=== PATIENT | male | born 1950 | race Caucasian/White ===

== ENCOUNTER → 2021-04-01 | Day surgery (SDC) | payer OTHER, MEDICARE ==
[~2021-04-01] VITALS: Ht 180.3 cm; Wt 81.7 kg
[~2021-04-01] MED LIST: CENTRUM SILVER1 EAC5 PO; FISH OIL 1,001000 M3 PO
--- NOTE | ~2021-04-01 | O ---
[facility] [place] [address] OPERATIVE REPORT Name: ELIU BARNES Room #: [facility]#: [id number] Admission: 04/01/21 Attend Phys: Cosme Muir MD Discharge: Date of : 48 Report #: [id number] THIS REPORT FOR: cc: FAM - Family physician unknown FAM - Family physician unknown Cosme Muir MD ~ cc: ____ ____, Bob Means MD DATE OF SERVICE: 04/01/2021 SURGEON: Cosme Muir MD DOCK HAND: None. PREOPERATIVE DIAGNOSIS: Bilateral lower lid ectropion. POSTOPERATIVE DIAGNOSIS: Bilateral lower lid ectropion. OPERATION PERFORMED: Bilateral lower lid ectropion repair. ANESTHESIA: Local with IV sedation. COMPLICATIONS: None. INDICATIONS FOR PROCEDURE: This patient has bilateral acquired lower lid ectropion with chronic tearing, keratopathy and discharge. The current procedures are undertaken in order to improve the patient's visual function, lacrimal outflow, and level of comfort. Informed consent was obtained to include but not limit to the risk of loss of vision, bleeding, infection, scarring, failure to improve the problem and need for further surgery. DESCRIPTION OF OPERATION: The patient was taken to the operating room where 2% Xylocaine with epinephrine mixed with equal parts of 0.75% Marcaine with Wydase was administered transcutaneously and transconjunctivally to each lower lid and lateral canthal area. The patient was then prepped and draped in the usual sterile fashion. A Leigh clamp was then used to clamp the left lateral canthus following which a sharp canthotomy and cantholysis were performed. The tarsal strip was prepared laterally, removing the lash bearing portion of the redundant lid margin and the redundant tarsal plate. Hemostasis was achieved with a monopolar cautery, as it was throughout the case. The tarsal strip was then secured to the internal portion of the lateral orbital tubercle with two interrupted 5-0 Prolene sutures. The lateral canthal angle was sharply reformed as the subcutaneous structures and the skin were closed with multiple interrupted 6-0 plain gut sutures. Attention was then turned to the right side where the same procedure was [facility] [address] [place] [address] OPERATIVE REPORT Name: ELIU BARNES Room #: [facility].#: [id number] Admission: 04/01/21 Attend Phys: Cosme Muir MD Discharge: Date of : 48 Report #: [id number] performed. The wounds were cleaned and dressed with ophthalmic antibiotic ointment. The patient was then transported to the recovery area, having tolerated the procedure well with no anesthetic or operative complications being noted. By: 0926 1111 Cosme Muir MD /nt
[2021-04-01 08:44] VITALS: BP 119/73
--- NOTE | 2021-04-01 10:23 | EKG ---
[address] [address] ELECTROCARDIOGRAM REPORT Name: MOLLYELIU Minh Room #: [facility].#: [id number] Admission: Attend Phys: Cosme Muir MD Discharge: Date of : 48 Report #: [id number] [facility] Test Date: 2021-04-01 Test Time: 09:44:07 Pat Name: ELIU BARNES Department: Room: Gender: Automatic [employer] Mechanic: [facility] : 1950 Requested By: Cosme Muir Order Number: [id number] MD: Bubba Lindquist Measurements Intervals [place] Rate: 59 P: 25 SC: 144 QRS: -36 QRSD: 93 T: 21 QT: 411 QTc: 408 Interpretive Statements Sinus rhythm Left axis deviation No previous ECG available for comparison Electronically Signed On 04-01-2021 10:23:37 CDT by Bubba Lindquist [email or web address] <ELECTRONICALLY SIGNED> By: Bubba Lindquist MD, [facility] 04/01/21 1023 0944 0944 Bubba Lindquist MD, FACC /EPI
== END | disposition home or self-care (01) ==
LOC: OR 07:32
PROVIDERS: ATTEND Ophthalmology
DX: H02.105 Unspecified ectropion of left lower eyelid (principal); H02.102 Unspecified ectropion of right lower eyelid; Z98.890 Other specified postprocedural states; Z96.652 Presence of left artificial knee joint; Z98.41 Cataract extraction status, right eye; Z98.42 Cataract extraction status, left eye
CPT/HCPCS: 50010; 50101; 50386; 50398; 51636; 56527; 56531; 62110; 62850; 70005